=== PATIENT | male | born 1960 | race Hispanic/Latino ===

== ENCOUNTER 2022-04-01 20:54 | Emergency (ER) | payer OTHER ==
[~2022-04-01] VITALS: Ht 170.2 cm; Wt 84.8 kg
[2022-04-01 21:40] VITALS: BP 142/78
[2022-04-01] MEDS ORDERED: IBUP-2070 PO (22:08)
[2022-04-01] MEDS ORDERED: IBUPROFEN 600 MG TABLET PO ONE (22:30)
== END 2022-04-01 22:30 | disposition home or self-care (01) ==
LOC: EDH 20:54
DX: S52.592A Other fractures of lower end of left radius, initial encounter for closed fracture (principal); Z79.1 Long term (current) use of non-steroidal anti-inflammatories (NSAID); W18.39XA Other fall on same level, initial encounter; Y93.89 Activity, other specified; Y92.89 Other specified places as the place of occurrence of the external cause; Y99.8 Other external cause status
CPT/HCPCS: 29125; 73110